=== PATIENT | male | born 1975 | race Caucasian/White ===

== ENCOUNTER 2019-01-14 08:00 | Outpatient (CLI) | payer OTHER ==
[2019-01-14 12:14] LABS: BASOPHILS # (AUTO) 0.1 10^3/uL (0.0-0.1); BASOPHILS % (AUTO) 0.9 %; EOSINOPHILS # (AUTO) 0.4 10^3/uL (0.0-0.7); EOSINOPHILS % (AUTO) 4.7 %; LYMPHOCYTES # (AUTO) 1.6 10^3/uL (1.5-3.5); LYMPHOCYTES % (AUTO) 17.4 %; MEAN CORPUSCULAR HEMOGLOBIN 27.1 pg (27.0-31.0); MEAN CORPUSCULAR HGB CONC 32.1 g/dL (32.0-36.0); MEAN CORPUSCULAR VOLUME 84.4 fL (80.0-94.0); MEAN PLATELET VOLUME 10.8 fL (7.4-11.4); MONOCYTES # (AUTO) 0.8 10^3/uL (0.0-1.0); MONOCYTES % (AUTO) 8.4 %; NEUTROPHILS # (AUTO) 6.4 10^3/uL (1.5-6.6); PLT - PLATELET COUNT 242 10^3/uL (130-450); RED CELL DISTRIBUTION WIDTH 13.3 % (12.0-15.0); WHITE BLOOD COUNT 9.4 x10^3/uL (4.8-10.8)
[2019-01-14 13:01] LABS: HEMOGLOBIN A1C 0.65 g/dL; HEMOGLOBIN A1C % 5.7 % (4.6-6.2)
[2019-01-14 13:28] LABS: ALBUMIN 4.5 g/dL (3.2-5.5); ALBUMIN/GLOBULIN RATIO 1.3 (1.0-2.2); ALKALINE PHOSPHATASE 60 IU/L (42-121); ALT ALANINE AMINOTRANSFERASE 53 IU/L (10-60); AST ASPARTATE AMINOTRANSFERASE 31 IU/L (10-42); BILIRUBIN,TOTAL 0.5 mg/dL (0.2-1.0); BUN - BLOOD UREA NITROGEN 25 mg/dL (6-20); CALCIUM 9.3 mg/dL (8.5-10.3); CARBON DIOXIDE - CO2 23 mmol/L (21-32); CHLORIDE 106 mmol/L (101-111); CHOL/HDL RATIO 3.5 (<5.0); CHOLESTEROL 170 mg/dL; CREATININE 0.8 mg/dL (0.6-1.2); GFR - MDRD 106 (>89); GLUCOSE 113 mg/dL (70-100); HDL CHOLESTEROL 49 mg/dL; LDL CHOLESTEROL,CALCULATED 102 mg/dL; LDL/HDL RATIO 2.1 (<3.6); SODIUM 137 mmol/L (135-145); TOTAL PROTEIN 7.9 g/dL (6.7-8.2); VLDL CHOLESTEROL 19 mg/dL
[2019-01-14 13:45] LABS: CREATININE,URINE 184.1 mg/dL; MICROALBUM/CREATININE RATIO,UR 66.3 ug/mg (<30.0); MICROALBUMIN,URINE 12.2 mg/dL (0-300.0)
== END 2019-01-14 23:59 | disposition home or self-care (01) ==
LOC: LAB.WCP 08:00
PROVIDERS: ATTEND Family Medicine
DX: E88.81 Metabolic syndrome and other insulin resistance (principal); R94.5 Abnormal results of liver function studies; I10 Essential (primary) hypertension; Z12.5 Encounter for screening for malignant neoplasm of prostate
CPT/HCPCS: 36415; 80050; 80061; 82043; 82570; 83036; 83721; 84153

== ENCOUNTER 2019-05-17 10:13 | Emergency (ER) | payer OTHER ==
--- NOTE | 2019-05-17 11:39 | ED Physician Documentation ---
History of Present Illness - Stated complaint Stated Complaint: RT FOOT PX - Chief complaint Chief Complaint: Ext Problem - History obtained from History obtained from: Patient, Family - History of Present Illness Timing: How many days ago (3) - Additonal information Additional information: This is a 44-year-old man with an apparent developmental delay presents with his father complaints that he is having pain in his right ankle. 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 He was getting out of the truck when he first noticed it. He denies any injury. [facility] and he was still complaining of pain and they noted a little swelling so they are here to make sure that is not fractur ed. He did get bit by anything. No fever no nausea or vomiting. He is not diabetic. Review of Systems Constitutional: denies: Fever GI: denies: Nausea, Vomiting Musculoskeletal: reports: Extremity pain, Extremity swelling Neurologic: denies: Numbness Endocrine: reports: Other (He is not diabetic.) PD PAST MEDICAL HISTORY - Allergies Allergies/Adverse Reactions: Allergies Allergy/AdvReac Type Severity Reaction Status Date / Time bee venom protein (honey bee) Allergy Unknown Verified 05/18/19 07:24 PD ED PE NORMAL - Vitals Vital signs reviewed: Yes - General General: Alert and oriented X 3, No acute distress, Well developed/nourished - HEENT HEENT: Atraumatic, PERRL - Derm Derm: No rash - Extremities Extremities: Other (There is some very minimal edema to the lateral aspect of the right ankle. There is no warmth or erythema. He has some tenderness with palpation across the anterior joint line. He has 2+ dorsalis pedis pulse and is able to wiggle his toes.) - Neuro Neuro: No motor deficit, No sensory deficit Results - Vitals Vitals: Oxygen O2 Source Room air - Rads (name of study) r ankle Radiology: EMP read contemporaneously (spur calcaneus) r foot Radiology: EMP read contemporaneously (spur calcaneus; no fracture) PD MEDICAL DECISION MAKING - ED course Complexity details: reviewed results, d/w patient, d/w family ED course: There is no evidence of fracture on the ankle or foot x-ray but I did note the spur on the calcaneus and my initial impression was that the patient had tendinitis anyway. They were offered a boot for support or postop shoe but they have declined this. Ibuprofen for pain ice and elevate. Departure - Departure Disposition: 01 Home, Self Care Clinical Impression: Foot pain, right Condition: Good Instructions: ED Sprain Foot Follow-Up: Blaine Paul MD [Primary Care Provider] - Comments: Take ibuprofen [id number] up to 3 to 4 tablets every 8 hours with food. Ice the foot where it sore. Minimize weightbearing as much as possible. F ollow-up with a primary care provider if his symptoms persist. Discharge Date/Time: 05/17/19 13:42
--- NOTE | 2019-05-17 13:04 | XRAY Report ---
Reason: pain Procedure Date: 05/17/2019 Accession Number: [id number] / [id number] Procedure: XR - Foot 3 View RT CPT Code: Final Report FULL RESULT: EXAM: RIGHT FOOT RADIOGRAPHY EXAM DATE: 05/17/2019 12:37 PM. CLINICAL HISTORY: Right foot pain. COMPARISON: None. TECHNIQUE: 3 views. FINDINGS: Bones: No acute fracture or bony lesion. No bony erosions. Prominent osteophyte arising from the superior talus. Joints: Normal alignment. Mild right first MTP joint degenerative changes. No dislocation. Soft Tissues: No radiopaque foreign bodies. IMPRESSION: 1. No acute osseous abnormalities. RADIA
[2019-05-17 13:42] VITALS: BP 138/101
--- NOTE | 2019-05-18 08:19 | XRAY Report ---
Reason: right ankle injury Procedure Date: 05/17/2019 Accession Number: [id number] / [id number] Procedure: XR - Ankle 3 View RT CPT Code: Final Report FULL RESULT: EXAM: RIGHT ANKLE RADIOGRAPHY EXAM DATE: 05/17/2019 12:04 PM. CLINICAL HISTORY: Right ankle injury. COMPARISON: None. TECHNIQUE: 3 views. FINDINGS: Bones: No fracture or focal bony lesion. Joints: No evidence of dislocation. Soft Tissues: No unexpected soft tissue findings. IMPRESSION: No evidence of fracture or dislocation. RADIA
== END 2019-05-17 13:42 | disposition home or self-care (01) ==
LOC: ED 10:13
DX: M25.571 Pain in right ankle and joints of right foot (principal); M77.31 Calcaneal spur, right foot
CPT/HCPCS: 99283; 99284

== ENCOUNTER 2021-03-19 08:00 | Outpatient (CLI) | payer OTHER ==
[2021-03-19 12:43] LABS: BASOPHILS # (AUTO) 0.1 10^3/uL (0.0-0.1); BASOPHILS % (AUTO) 0.8 %; EOSINOPHILS # (AUTO) 0.4 10^3/uL (0.0-0.7); HCT - HEMATOCRIT 49.5 % (42.0-52.0); HGB - HEMOGLOBIN 16.3 g/dL (14.0-18.0); LYMPHOCYTES % (AUTO) 27.9 %; MEAN CORPUSCULAR HEMOGLOBIN 27.8 pg (27.0-31.0); MEAN CORPUSCULAR HGB CONC 32.9 g/dL (32.0-36.0); MEAN CORPUSCULAR VOLUME 84.5 fL (80.0-94.0); MONOCYTES # (AUTO) 0.6 10^3/uL (0.0-1.0); MONOCYTES % (AUTO) 8.7 %; NEUTROPHILS % (AUTO) 55.5 %; PLT - PLATELET COUNT 164 10^3/uL (130-450); RED BLOOD COUNT 5.86 10^6/uL (4.70-6.10); WHITE BLOOD COUNT 7.3 x10^3/uL (4.8-10.8)
[2021-03-19 12:58] LABS: CREATININE,URINE 241.4 mg/dL; MICROALBUM/CREATININE RATIO,UR 32.3 ug/mg (<30.0); MICROALBUMIN,URINE 7.8 mg/dL (0-300.0)
[2021-03-19 13:01] LABS: ALBUMIN 4.5 g/dL (3.2-5.5); ALBUMIN/GLOBULIN RATIO 1.5 (1.0-2.2); ALKALINE PHOSPHATASE 58 IU/L (42-121); ALT ALANINE AMINOTRANSFERASE 60 IU/L (10-60); AST ASPARTATE AMINOTRANSFERASE 36 IU/L (10-42); BILIRUBIN,TOTAL 1.1 mg/dL (0.2-1.0); BUN - BLOOD UREA NITROGEN 24 mg/dL (6-20); CALCIUM 9.5 mg/dL (8.5-10.3); CARBON DIOXIDE - CO2 28 mmol/L (21-32); CHLORIDE 102 mmol/L (101-111); CHOL/HDL RATIO 3.8 (<5.0); CHOLESTEROL 164 mg/dL; CREATININE 0.9 mg/dL (0.6-1.2); GFR - MDRD 91 (>89); GLUCOSE 111 mg/dL (70-100); HDL CHOLESTEROL 43 mg/dL; LDL CHOLESTEROL,CALCULATED 95 mg/dL; LDL/HDL RATIO 2.2 (<3.6); POTASSIUM 3.9 mmol/L (3.5-5.0); SODIUM 140 mmol/L (135-145); TOTAL PROTEIN 7.5 g/dL (6.7-8.2); TRIGLYCERIDES 132 mg/dL; VLDL CHOLESTEROL 26 mg/dL
[2021-03-19 13:11] LABS: THYROID STIMULATING HORMONE 2.2 uIU/mL (0.34-5.60)
[2021-03-19 13:26] LABS: ESTIMATED AVERAGE GLUCOSE 134 mg/dL (70-100); HEMOGLOBIN A1c% 6.3 % (4.27-6.07)
== END 2021-03-19 23:59 | disposition home or self-care (01) ==
LOC: LAB.WCP 08:00
PROVIDERS: ATTEND Internal Medicine
DX: E88.81 Metabolic syndrome and other insulin resistance (principal)
CPT/HCPCS: 36415; 80053; 80061; 82043; 82570; 83036; 83721; 84443; 85025

== ENCOUNTER 2021-05-08 08:44 | Outpatient (CLI) | payer OTHER ==
--- NOTE | 2021-05-08 11:13 | XRAY Report ---
PROCEDURE: Ankle 3 View RT INDICATIONS: ANKLE/FOOT PAIN TECHNIQUE: 3 views of the ankle were acquired. COMPARISON: 05/17/2019 FINDINGS: Bones: No fractures or dislocations. Ankle mortise is normally aligned. No suspicious bony lesions . The talar dome demonstrates an unremarkable appearance. Soft tissues: No tibiotalar joint effusion. Achilles tendon appears normal. IMPRESSION: No significant plain film abnormality can be seen. In this patient with persistent right ankle pain, please consider a follow-up ankle MRI for further e valuation (assuming that there is no contraindication). Reviewed by: Liu Granados MD on 05/08/2021 10:12 AM [facility] Approved by: Liu Granados MD on 05/08/2021 10:12 AM [facility] Station ID: [id number]
== END 2021-05-08 08:45 | disposition home or self-care (01) ==
LOC: DI.WOS 08:44
PROVIDERS: ATTEND Orthopaedic Surgery
DX: M25.571 Pain in right ankle and joints of right foot (principal)

== ENCOUNTER 2021-09-25 06:00 | Outpatient (CLI) | payer OTHER ==
--- NOTE | 2021-09-25 17:31 | XRAY Report ---
PROCEDURE: Foot 3 View RT INDICATIONS: FOOT PAIN TECHNIQUE: 3 views of the foot were acquired. COMPARISON: None FINDINGS: Bones: No fractures or dislocations. Mild osteoarthritic changes are noted in forefoot joints more p rominent in great toe. No suspicious bony lesions. Soft tissues: No tibiotalar joint effusion. Achilles tendon appears normal. IMPRESSION: Mild forefoot joint osteoarthritis. No fracture or dislocation. Reviewed by: Kody Zacarias MD on 09/25/2021 5:30 PM PDT Approved by: Kody Zacarias MD on 09/25/2021 5:30 PM PDT Station ID: [id number]
--- NOTE | 2021-09-25 17:32 | XRAY Report ---
PROCEDURE: Ankle 3 View RT INDICATIONS: ANKLE PX TECHNIQUE: 3 views of the ankle were acquired. COMPARISON: 05/08/2021 FINDINGS: Bones: Curvilinear calcification adjacent to tip of medial malleolus is again seen suggestive of old avulsion injury. Other fracture or dislocation. Osteoarthritic changes are noted in talonavicular nandini int and subtalar joint. Ankle mortise is normally aligned. No suspicious bony lesions. Soft tissues: No tibiotalar joint effusion. Achilles tendon appears normal. IMPRESSION: Mild hindfoot joint osteoarthritis. Old avulsion injury involving tip of medial malleolu s unchanged from prior study. Ankle mortise is congruent. No other fracture or dislocation. Reviewed by: Kody Zacarias MD on 09/25/2021 5:31 PM PDT Approved by: Kody Zacarias MD on 09/25/2021 5:31 PM PDT Station ID: [id number]
== END 2021-09-25 23:59 | disposition home or self-care (01) ==
LOC: DI.WOS 06:00
PROVIDERS: ATTEND Physician Assistant
DX: M25.871 Other specified joint disorders, right ankle and foot (principal); M19.071 Primary osteoarthritis, right ankle and foot

== ENCOUNTER 2021-11-13 07:09 | Outpatient (CLI) | payer OTHER ==
[2021-11-13 13:31] LABS: ALBUMIN 4.4 g/dL (3.2-5.5); ALBUMIN/GLOBULIN RATIO 1.5 (1.0-2.2); ALKALINE PHOSPHATASE 48 IU/L (42-121); ALT ALANINE AMINOTRANSFERASE 38 IU/L (10-60); AST ASPARTATE AMINOTRANSFERASE 31 IU/L (10-42); BILIRUBIN,TOTAL 0.8 mg/dL (0.2-1.0); BUN - BLOOD UREA NITROGEN 23 mg/dL (6-20); CALCIUM 9.4 mg/dL (8.5-10.3); CARBON DIOXIDE - CO2 28 mmol/L (21-32); CHLORIDE 103 mmol/L (101-111); CHOL/HDL RATIO 3.4 (<5.0); CHOLESTEROL 164 mg/dL; CREATININE 0.8 mg/dL (0.6-1.2); GFR - MDRD 104 (>89); GLUCOSE 100 mg/dL (70-100); HDL CHOLESTEROL 48 mg/dL; LDL CHOLESTEROL,CALCULATED 97 mg/dL; POTASSIUM 3.8 mmol/L (3.5-5.0); SODIUM 138 mmol/L (135-145); TOTAL PROTEIN 7.4 g/dL (6.7-8.2); TRIGLYCERIDES 94 mg/dL; VLDL CHOLESTEROL 19 mg/dL
[2021-11-13 14:50] LABS: ESTIMATED AVERAGE GLUCOSE 114 mg/dL (70-100); HEMOGLOBIN A1c% 5.6 % (4.27-6.07)
== END 2021-11-13 07:10 | disposition home or self-care (01) ==
LOC: LAB.N 07:09
PROVIDERS: ATTEND Internal Medicine
DX: R73.03 Prediabetes (principal)
CPT/HCPCS: 36415; 80053; 80061; 83036; 83721

== ENCOUNTER 2022-05-18 10:10 | Outpatient (CLI) | payer OTHER ==
--- NOTE | 2022-05-18 10:55 | XRAY Report ---
PROCEDURE: Elbow 2 View RT INDICATIONS: RIGHT ARM PX TECHNIQUE: 2 views of the elbow were acquired. COMPARISON: None FINDINGS: Bones: No fractures or dislocations. No suspicious bony lesions. Soft tissues: No elbow joint effusion. No suspicious soft tissue calcifications. IMPRESSION: No visualized acute fracture or dislocation. However, occult injury cannot be excluded. Recommend osorio rt interval imaging follow-up in 7-10 days as clinically indicated for additional evaluation. Reviewed by: Lian Aguilar MD on 05/18/2022 10:[address] [facility] Approved by: Lian Aguilar MD on 05/18/2022 10:[address] [facility] Station ID: [id number]
== END 2022-05-18 10:11 | disposition home or self-care (01) ==
LOC: DI 10:10
PROVIDERS: ATTEND Nurse Practitioner
DX: M79.601 Pain in right arm (principal)

== ENCOUNTER 2022-10-26 09:18 | Outpatient (CLI) | payer OTHER ==
[2022-10-26 19:02] LABS: BASOPHILS # (AUTO) 0.1 10^3/uL (0.0-0.1); BASOPHILS % (AUTO) 0.8 %; EOSINOPHILS # (AUTO) 0.4 10^3/uL (0.0-0.7); EOSINOPHILS % (AUTO) 6.9 %; HCT - HEMATOCRIT 46.9 % (42.0-52.0); HGB - HEMOGLOBIN 15.3 g/dL (14.0-18.0); LYMPHOCYTES # (AUTO) 1.8 10^3/uL (1.5-3.5); MEAN CORPUSCULAR HEMOGLOBIN 27.7 pg (27.0-31.0); MEAN CORPUSCULAR HGB CONC 32.6 g/dL (32.0-36.0); MEAN CORPUSCULAR VOLUME 84.8 fL (80.0-94.0); MEAN PLATELET VOLUME 12.1 fL (7.4-11.4); MONOCYTES # (AUTO) 0.5 10^3/uL (0.0-1.0); MONOCYTES % (AUTO) 8.2 %; NEUTROPHILS # (AUTO) 3.3 10^3/uL (1.5-6.6); NEUTROPHILS % (AUTO) 53.6 %; PLT - PLATELET COUNT 145 10^3/uL (130-450); RED BLOOD COUNT 5.53 10^6/uL (4.70-6.10); RED CELL DISTRIBUTION WIDTH 13.6 % (12.0-15.0); WHITE BLOOD COUNT 6.1 x10^3/uL (4.8-10.8)
[2022-10-26 19:30] LABS: ALBUMIN 4.2 g/dL (3.2-5.5); ALBUMIN/GLOBULIN RATIO 1.4 (1.0-2.2); ALKALINE PHOSPHATASE 46 IU/L (42-121); ALT ALANINE AMINOTRANSFERASE 34 IU/L (10-60); AST ASPARTATE AMINOTRANSFERASE 27 IU/L (10-42); BUN - BLOOD UREA NITROGEN 18 mg/dL (6-20); CALCIUM 9.1 mg/dL (8.5-10.3); CARBON DIOXIDE - CO2 28 mmol/L (21-32); CHLORIDE 103 mmol/L (101-111); CHOL/HDL RATIO 3.7 (<5.0); CHOLESTEROL 172 mg/dL; CREATININE 0.8 mg/dL (0.6-1.2); GFR - MDRD 104 (>89); GLUCOSE 91 mg/dL (70-100); HDL CHOLESTEROL 46 mg/dL; LDL CHOLESTEROL,CALCULATED 110 mg/dL; LDL/HDL RATIO 2.4 (<3.6); POTASSIUM 3.9 mmol/L (3.5-5.0); SODIUM 138 mmol/L (135-145); TOTAL PROTEIN 7.1 g/dL (6.7-8.2); TRIGLYCERIDES 80 mg/dL; VLDL CHOLESTEROL 16 mg/dL
[2022-10-26 19:40] LABS: CREATININE,URINE 63.6 mg/dL; MICROALBUM/CREATININE RATIO,UR 6.3 ug/mg (<30.0); MICROALBUMIN,URINE 0.4 mg/dL (0-300.0)
[2022-10-26 21:55] LABS: ESTIMATED AVERAGE GLUCOSE 105 mg/dL (70-100); HEMOGLOBIN A1c% 5.3 % (4.27-6.07)
== END 2022-10-26 09:19 | disposition home or self-care (01) ==
LOC: LAB.N 09:18
PROVIDERS: ATTEND Internal Medicine
DX: I10 Essential (primary) hypertension (principal); R73.03 Prediabetes
CPT/HCPCS: 36415; 80053; 80061; 82043; 82570; 83036; 83721; 85025

== ENCOUNTER 2023-12-28 15:13 | Observation (INO) | payer OTHER ==
--- NOTE | 2023-12-28 15:57 | ED Physician Documentation ---
PD HPI HEENT - Stated complaint Stated Complaint: SWOLLEN NECK AREA - Chief complaint Chief Complaint: Heent - History obtained from History obtained from: Patient (48-year-old gentleman who says he is otherwise healthy has developed relatively painless neck swelling today. He denies fevers, changes in phonation, or dental pain. This is never happened to him before.) PD PAST MEDICAL HISTORY - Past Medical History Cardiovascular: Hypertension Respiratory: None Neuro: None Endocrine/Autoimmune: None GI: None : None HEENT: None Psych: None Musculoskeletal: None Derm: None - Past Surgical History Past Surgical History: No - Allergies Allergies/Adverse Reactions: Allergies Allergy/AdvReac Type Severity Reaction Status Date / Time bee venom protein (honey bee) Allergy Unknown Verified 12/28/23 15:20 - Social History Does the pt smoke?: Yes Smoking Status: Current every day smoker Does the pt drink ETOH?: No Does the pt have substance abuse?: No - POLST Patient has POLST: No PD ED PE NORMAL - Vitals Vital signs reviewed: Yes - General General: Alert and oriented X 3, No acute distress - HEENT HEENT: Other (He seems to have an odd voice, that said he says his phonation is normal. No obvious culprit tooth. He does have some sublingual edema. He also has soft edema below the mandible to the level of the hyoid. Neck is supple.) - Neuro Neuro: Alert and oriented X 3, Normal speech Eye Opening: Spontaneous Motor: Obeys Commands Verbal: Oriented GCS Score: 15 Results - Vitals Vitals: Vital Signs - 24 hr 12/28/23 12/28/23 12/28/23 15:20 15:56 16:26 Temperature 36.9 C Heart Rate 72 65 63 Respiratory 18 22 16 Rate Blood Pressure 167/87 H 140/83 H 128/75 O2 Saturation 96 94 100 12/28/23 12/28/23 12/28/23 16:56 17:00 17:30 Temperature Heart Rate 58 L 58 L 64 Respiratory 18 Rate Blood Pressure 128/80 128/80 141/78 H O2 Saturation 95 95 94 Oxygen O2 Source Room air - Labs Labs: Laboratory Tests 12/28/23 12/28/23 12/28/23 15:55 15:55 16:03 WBC 10.1 RBC 5.57 Hgb 15.3 Hct 45.4 MCV 81.5 MCH 27.5 MCHC 33.7 RDW 13.2 Plt Count 169 MPV 10.6 Neut # (Auto) 6.8 H Lymph # (Auto) 1.9 [place] # (Auto) 0.9 Eos # (Auto) 0.4 Baso # (Auto) 0.1 Absolute Nucleated RBC 0.00 Nucleated RBC % 0.0 Sodium 140 Potassium 3.5 Chloride 104 Carbon Dioxide 27 Anion Gap 9.0 BUN 23 H Creatinine 1.2 Estimated GFR (MDRD) 65 L Glucose 98 Lactic Acid 0.8 Calcium 9.0 Total Bilirubin 0.6 AST 20 ALT 18 Alkaline Phosphatase 52 Total Protein 6.7 Albumin 4.2 Globulin 2.5 Albumin/Globulin Ratio 1.7 - Rads (name of study) CT soft tissue neck demonstrates stranding in the right neck with thickening of the platysma concerning for cellulitis with enlargement of the right s Relevant Findings:: Final report received (CT soft tissue neck demonstrates stranding in the right neck with thickening of the platysma concerning for cellulitis with enlargement of the right submandibular gland, adenopathy, and tonsillar prominence.), EMP independent interpretation of test PD Medical Decision Making - ED course ED course: 48-year-old gentleman looks to have something like Jf's angina.. He is maintaining his airway at this point so we will obtain CT imaging. Will obtain blood cultures and labs and administer Zosyn and dexamethasone. White count is 10, CBC, CMP otherwise unremarkable with normal lactate. After resolution of the CT I did ask a local OMFS, Dr. Rush to come see him and he is on his way as of 5:55 PM. Patient asked me to call his brother Guillaume. He is available at [phone]. Per pts brother Guillaume he does have dev delay. Dr Rush was able to see the patient and reviewed the imaging and feels that the source of his infection is likely a submandibular gland infection and agrees with admission. Decision to admit made at 1843 but slight delay due to hospitalist shift change at 7 PM. Departure - Departure Disposition: 66 [facility] DC/Xfer Clinical Impression: Cellulitis, neck, Sialoadenitis of submandibular gland Condition: Stable Forms: PCP List
[2023-12-28 16:01] LABS: BASOPHILS # (AUTO) 0.1 10^3/uL (0.0-0.1); BASOPHILS % (AUTO) 0.6 %; EOSINOPHILS # (AUTO) 0.4 10^3/uL (0.0-0.7); HCT - HEMATOCRIT 45.4 % (42.0-52.0); HGB - HEMOGLOBIN 15.3 g/dL (14.0-18.0); LYMPHOCYTES # (AUTO) 1.9 10^3/uL (1.5-3.5); LYMPHOCYTES % (AUTO) 18.6 %; MEAN CORPUSCULAR HEMOGLOBIN 27.5 pg (27.0-31.0); MEAN CORPUSCULAR HGB CONC 33.7 g/dL (32.0-36.0); MEAN CORPUSCULAR VOLUME 81.5 fL (80.0-94.0); MEAN PLATELET VOLUME 10.6 fL (7.4-11.4); MONOCYTES # (AUTO) 0.9 10^3/uL (0.0-1.0); NEUTROPHILS # (AUTO) 6.8 10^3/uL (1.5-6.6); NEUTROPHILS % (AUTO) 67.4 %; PLT - PLATELET COUNT 169 10^3/uL (130-450); RED BLOOD COUNT 5.57 10^6/uL (4.70-6.10); RED CELL DISTRIBUTION WIDTH 13.2 % (12.0-15.0); WHITE BLOOD COUNT 10.1 x10^3/uL (4.8-10.8)
[2023-12-28] MEDS: SODIUM CHLORIDE 0.9% 1,000 ML IV STA (16:02)
[2023-12-28] MEDS: DEXAMETHASONE 10 MG/ML VIAL IVP STA (16:02)
[2023-12-28] MEDS: PIPERACILLIN/TAZOBACTAM 3.375 GM in SODIUM CHLORIDE 0.9% MINIBAG 100 ML IV STA (16:14)
[2023-12-28 16:15] LABS: ALBUMIN 4.2 g/dL (3.2-5.5); ALBUMIN/GLOBULIN RATIO 1.7 (1.0-2.2); BILIRUBIN,TOTAL 0.6 mg/dL (0.2-1.0); CREATININE 1.2 mg/dL (0.6-1.3); POTASSIUM 3.5 mmol/L (3.5-4.5); TOTAL PROTEIN 6.7 g/dL (6.4-8.9)
[2023-12-28] MEDS ORDERED: iohexoL-300 100 ML VIAL ONE (16:50)
--- NOTE | 2023-12-28 17:46 | CT Report ---
PROCEDURE: Soft Tissue Neck W INDICATIONS: neck swell CONTRAST: 100ml omni 300 TECHNIQUE: After the administration of intravenous contrast, 3.0 mm axial sections acquired from the sella to th e aortic arch. Additional oblique axial 3.0 mm sections acquired through the pharynx. 3 mm thick co genet reformats were generated. For radiation dose reduction, the following was used: automated exp osure control, adjustment of mA and/or kV according to patient size. COMPARISON: None. FINDINGS: Image quality: Excellent. Lymph nodes: No enlarged lymph nodes seen throughout the neck. A few prominent lymph nodes on the r ight, likely reactive. Vessels: Visualized vasculature appears patent. Neck spaces: Subcutaneous stranding within the right neck with mild thickening of the platysma. No o rganized fluid collections. Prominent palatine tonsils bilaterally. The oropharynx, nasopharynx, and pharynx demonstrate no mucosal lesions. The vocal cords, false vocal cords, pyriform sinuses, epiglo ttis, vallecula, and tongue base all appear normal. Glands: Mild enlargement of the right submandibular gland compared to the left with edema. The parot id glands appear normal. The thyroid is normal in size and there are no incidental findings. Miscellaneous: Visualized brain and orbits appear normal. Lung apices appear clear. Superficial so ft tissues appear normal. Bones: No suspicious bony lesions. Visualized sinuses and mastoids appear unremarkable. IMPRESSION: Subcutaneous stranding within the right neck with thickening of the platysma. Findings are concerning for cellulitis. Mild enlargement of the right submandibular gland with associated edema. This may be reactive from adjacent infection versus infection involving the submandibular gland. Prominent right cervical lymph nodes, likely reactive. Prominence of the bilateral palatine tonsils, may be infectious in etiology. Recommend clinical corre lation and direct visualization as indicated. Reviewed by: Jeferson Hall MD on 12/28/2023 5:44 PM PDT Approved by: Jeferson Hall MD on 12/28/2023 5:44 PM PDT Station ID: [id number]
[2023-12-28] MEDS: iohexoL-300 100 ML VIAL IVP ONE (18:21)
[2023-12-28] MEDS ORDERED: VANCOMYCIN 1 GM VIAL ONE (18:33)
[2023-12-28] MEDS: VANCOMYCIN INJ 2 GM in SODIUM CHLORIDE 0.9% 500 ML IV STA (18:51)
--- NOTE | 2023-12-28 18:58 | CONSULTATION NOTE ---
Referring Provider Name of Referring Provider:: Kameron Scruggs Consult Date: 12/28/23 Chief Complaint - Chief Complaint Chief Complaint: Neck Pain History of Present Illness - Admitted From Admitted From:: ER - History Obtained From Exam Limitations: The patient had mild difficulty answering questions about his history - History of Present Illness HPI Comment/Other: Pain in the right neck and swelling in the throat began this am. Denies fever, night sweats, N/V. Presented to ER today. CT soft tissue neck: cellulitis of the right cervical skin with edema of the R submandibular salivary gland. History - Past Medical History Cardiovascular: reports: Hypertension Respiratory: reports: None Neuro: reports: None Endocrine/Autoimmune: reports: None GI: reports: None : reports: None HEENT: reports: None Psych: reports: None Musculoskeletal: reports: None Derm: reports: None MRSA Hx?: No - POLST Patient has POLST: No Meds/Allgy - Allergies Allergies/Adverse Reactions: Allergies Allergy/AdvReac Type Severity Reaction Status Date / Time bee venom protein (honey bee) Allergy Unknown Verified 12/28/23 15:20 Review of Systems - Constitutional Constitutional: reports: Other (A 14 point review of systems was completed [place] negative except as noted above in HPI) Exam - Vital Signs Reviewed Vital Signs: Yes Vital Signs: Vital Signs x48h Temp Pulse Resp BP Pulse Ox 12/28/23 17:30 64 141/78 H 94 12/28/23 17:00 58 L 128/80 95 12/28/23 16:56 58 L 18 128/80 95 12/28/23 16:26 63 16 128/75 100 12/28/23 15:56 65 22 140/83 H 94 12/28/23 15:20 36.9 C 72 18 167/87 H 96 - Physical Exam General Appearance: positive: No acute distress, Alert Eyes Bilateral: positive: PERRL, EOMI ENT: positive: Other ( LUZ WNL. Occlusion stable and repeatable. Dentition in good repair. Floor the mouth soft, nontender, nonelevated. Right Island's duct red and edematous. No drainage. No saliva can be milked from this site. No palpable stone. Uvula midline. No lateral pharyngeal swelling.) Neck: positive: Other ( Posterior pharyngeal wall easily observable. Some redness of the right submandibular area. No tenderness. Some induration of the right submandibular area. Most notable is the tenderness and swelling of the right submillimeter salivary gland. It can be palpated intraorally and extraorally.) Respiratory: positive: No respiratory distress Cardiovascular: positive: Regular rate & rhythm Peripheral Pulses: positive: 2+ Abdomen: positive: Non-tender Skin: positive: Other Extremities: positive: Non-tender, Nml appearance Conclusion and Plan - Lab Results Laboratory Results 12/28/23 16:03: Lactic Acid 0.8 12/28/23 15:55: Sodium 140, Potassium 3.5, Chloride 104, Carbon Dioxide 27, Anion Gap 9.0, BUN 23 H, Creatinine 1.2, Estimated GFR (MDRD) 65 L, Glucose 98, Calcium 9.0, Total Bilirubin 0.6, AST 20, ALT 18, Alkaline Phosphatase 52, Total Protein 6.7, Albumin 4.2, Globulin 2.5, Albumin/Globulin Ratio 1.7 12/28/23 15:55: WBC 10.1, RBC 5.57, Hgb 15.3, Hct 45.4, MCV 81.5, MCH 27.5, MCHC 33.7, RDW 13.2, Plt Count 169, MPV 10.6, Neut # (Auto) 6.8 H, Lymph # (Auto) 1.9, [place] # (Auto) 0.9, Eos # (Auto) 0.4, Baso # (Auto) 0.1, Absolute Nucleated RBC 0.00, Nucleated RBC % 0.0 - Diagnostic Imaging Results Diagnostic Imaging Results Comments: Cellulitis of the right cervical skin especially. The cellulitis is in a supraplatysmal plane and there is also edema in a subplatysmal plane. There is also edema of the right significant Marvin salivary gland, moderate. There is no associated abscess. There is no observable calcified stone within the right Island's duct. There is mild narrowing of the airway although this may be chronic or acute. There is no obvious deviation of the airway and no mass effect on the airway. - Diagnosis Diagnosis: Right submandibular salivary gland sialoadenitis with overlying cellulitis of the cervical skin - Consultation Note Consultation Note: 48-year-old male with right submandibular salivary gland sialoadenitis with overlying cellulitis of the cervical skin. Plan: We anticipate nonoperative management of this patient. His cellulitis should resolve nonsurgically. Right now there is no immediate threat of airway compromise. He is phonating normally. He can swallow without difficulty. He has only mild pain when he tries to swallow.His CT scan findings are relatively mild. Recommend admitting to inpatient because of his edema in the setting of his developmental delay. It may be difficult for him to report his symptoms. This may be masking more severe disease than is clinically evident.Because of this we recommend taking a more aggressive approach to his medical management. Medical management for submandibular salivary gland sialoadenitis should include: 1. Hydration. This can be p.o. and intravenous. 2. Intravenous antibiotics. Submandibular sialoadenitis is usually caused by stasis of salivary flow associated with proteinaceous blockage of the right submandibular salivary gland duct, Island's duct. It is often polymicrobial. Staphylococcus aureus is the most common isolate. Other isolates include other common oral allie. Recommend Unasyn 3 g IV every 6 hours followed by 7 days of Augmentin 875 mg tab p.o. twice daily upon discharge 3. Intravenous steroids. Recommend dexamethasone 8 mg IV every 8 hours while in house. Discontinue steroids upon discharge. 4. Activities that encourage saliva production. Chew gum. Suck on sour candies. 5. Encouraged the patient to manually massage the most swollen and painful area of the right neck, this is the prominence of the swelling of the submandibular gland and this will also encourage drainage. It is anticipated that this patient will improve so quickly on steroids and IV antibiotics that he will be ready for discharge by tomorrow morning. I will see him again in the morning to reassess the edema of his right submandibular salivary gland. He will need to follow-up with me in my office. Office phone number is [phone]. If he has recurring sialoadenitis of the right submandibular salivary gland he will need to have the gland removed. Thank you for including me in the care of this patient. Please feel free to contact me with any additional questions. Cell phone: [phone] Aston Rush DDS linen tech
[2023-12-28] MEDS ORDERED: ACETAMINOPHEN 325 MG TABLET PO PRN (20:16)
[2023-12-28] MEDS ORDERED: ONDANSETRON ODT 4 MG TABLET TL PRN (20:16)
[2023-12-28] MEDS ORDERED: oxyCODONE 5 MG TABLET PO PRN ×2 (20:16)
[2023-12-28] MEDS ORDERED: MELATONIN 3 MG TABLET PO PRN (20:17)
[2023-12-28 20:45] LABS: ESTIMATED AVERAGE GLUCOSE 100 mg/dL (70-100); HEMOGLOBIN A1c% 5.1 % (4.27-6.07)
[2023-12-28 20:53] LABS: THYROID STIMULATING HORMONE 1.88 uIU/mL (0.34-5.60)
[2023-12-28 20:55] LABS: CHOL/HDL RATIO 3.4 (<5.0); CHOLESTEROL 158 mg/dL; HDL CHOLESTEROL 47 mg/dL; LDL CHOLESTEROL,CALCULATED 81 mg/dL; LDL/HDL RATIO 1.7 (<3.6); TRIGLYCERIDES 149 mg/dL; VLDL CHOLESTEROL 30 mg/dL
[2023-12-28] MEDS ORDERED: DEXAMETHASONE 10 MG/ML VIAL IVP SCH (21:00)
[2023-12-28] MEDS: FAMOTIDINE 20 MG/2 ML VIAL IVP SCH (21:37)
[2023-12-28] MEDS: SODIUM CHLORIDE FLUSH 0.9% 10 ML SYRINGE IVP PRN (21:37)
[2023-12-28] MEDS: AMPICILLIN/SULBACTAM 3 GM in SODIUM CHLORIDE 0.9% MINIBAG 100 ML IV SCH (21:53)
[2023-12-28] MEDS: LACTATED RINGERS 1,000 ML IV SCH (22:33)
[2023-12-29] MEDS: DEXAMETHASONE 10 MG/ML VIAL IVP SCH (00:42)
[2023-12-29] MEDS: SODIUM CHLORIDE FLUSH 0.9% 10 ML SYRINGE IVP SCH (00:42)
--- NOTE | 2023-12-29 03:37 | HISTORY & PHYSICAL EXAMINATION ---
Chief Complaint - Chief Complaint Chief Complaint: neck / face swelling History of Present Illness - History of Present Illness HPI Comment/Other: pt with R side neck and face swelling that developed within last 24 hours. no sob and denies any recent dental interventions. no fevers, chills, chest pain. he has some pain with swallowing. denies any wounds or injuries to face or neck. History - Past Medical History Cardiovascular: reports: Hypertension Respiratory: reports: None Neuro: reports: None Endocrine/Autoimmune: reports: None GI: reports: None : reports: None HEENT: reports: None Psych: reports: None Musculoskeletal: reports: None Derm: reports: None MRSA Hx?: No - POLST Patient has POLST: No Meds/Allgy - Allergies Allergies/Adverse Reactions: Allergies Allergy/AdvReac Type Severity Reaction Status Date / Time bee venom protein (honey bee) Allergy Unknown Verified 12/28/23 15:20 Review of Systems - Other Findings Other Findings: 14 pt review done with positives per hpi; all others reviewed as negative Exam - Vital Signs Vital Signs: Vital Signs x48h Temp Pulse Pulse Resp BP BP Pulse Ox 12/28/23 23:54 36.4 C L 71 20 127/75 93 12/28/23 21:00 36.6 C 68 20 147/97 H 95 12/28/23 20:55 72 16 127/80 93 - Physical Exam Comments/Other: gen - aaox3, nad heent - R neck/face swelling with tenderness noted along jaw line. no open wounds noted. some erythema. heart - per ed charting lungs - no resp distress noted abd - soft, nt Conclusion/Plan - Lab Results Fish Bones: 12/28/23 15:55 12/28/23 15:55 - Other Other Results/Comments: pt with - - face/neck cellulitis concerning for nilo's angina but maintaining airway ct findings corroborate exam --> neck and subcutaneous edema and swelling d/t cellulitis omfs recommendations appreciated --> unasyn + decadron sialoadenitis - elevated bp with h/o htn exacerbated in setting of above monitor for now; unclear if pt is taking meds
[2023-12-29] MEDS ORDERED: SODIUM CHLORIDE 0.9% MINIBAG 100 ML IV ONE (03:48)
[2023-12-29] MEDS: AMPICILLIN/SULBACTAM 3 GM in SODIUM CHLORIDE 0.9% MINIBAG 100 ML IV SCH (04:14)
[2023-12-29 05:19] LABS: BASOPHILS % (AUTO) 0.1 %; LYMPHOCYTES # (AUTO) 0.7 10^3/uL (1.5-3.5); LYMPHOCYTES % (AUTO) 4.9 %; MEAN CORPUSCULAR HEMOGLOBIN 27.5 pg (27.0-31.0); MEAN CORPUSCULAR HGB CONC 33.3 g/dL (32.0-36.0); MEAN CORPUSCULAR VOLUME 82.6 fL (80.0-94.0); MEAN PLATELET VOLUME 10.7 fL (7.4-11.4); MONOCYTES # (AUTO) 0.2 10^3/uL (0.0-1.0); MONOCYTES % (AUTO) 1.1 %; NEUTROPHILS # (AUTO) 13.8 10^3/uL (1.5-6.6); NEUTROPHILS % (AUTO) 93.4 %; PLT - PLATELET COUNT 167 10^3/uL (130-450); RED BLOOD COUNT 5.45 10^6/uL (4.70-6.10); RED CELL DISTRIBUTION WIDTH 13.2 % (12.0-15.0); WHITE BLOOD COUNT 14.8 x10^3/uL (4.8-10.8)
[2023-12-29 05:38] LABS: ALBUMIN 3.8 g/dL (3.2-5.5); ALBUMIN/GLOBULIN RATIO 1.6 (1.0-2.2); BILIRUBIN,TOTAL 0.8 mg/dL (0.2-1.0); CALCIUM 8.7 mg/dL (8.5-10.3); CREATININE 0.8 mg/dL (0.6-1.3); MAGNESIUM 1.5 mg/dL (1.7-2.3); POTASSIUM 3.5 mmol/L (3.5-4.5); TOTAL PROTEIN 6.2 g/dL (6.4-8.9)
--- NOTE | 2023-12-29 10:02 | PROVIDER PROGRESS NOTE ---
Subjective - General Admit Date: 12/28/23 - Review of Systems General: positive: Other (Ate breakfast without difficulty swallowing or pain. Accompanied by his brother today. Reports that the pain and swelling are improved.) Objective - Patient Data Vital Signs: Vital Signs x48h Temp Pulse Resp BP Pulse Ox 12/29/23 09:00 36.7 C 63 20 126/85 H 93 12/29/23 04:25 36.4 C L 67 20 138/83 H 94 Weight: Weight 12/27/23 12/28/23 12/29/23 23:59 23:59 23:59 Weight (kg) 92 kg Intake & Output: Intake and Output Totals x24h 12/27/23 12/28/23 12/29/23 23:59 23:59 23:59 Intake Total 1700 1398.333 Balance 1700 1398.333 - Lab Results Lab Results: 12/29/23 05:02 12/29/23 05:02 Other Lab Results: Lab Results x24hrs 12/29/23 12/29/23 12/28/23 Range/Units 05:02 05:02 16:03 WBC 14.8 H (4.8-10.8) x10^3/uL RBC 5.45 (4.70-6.10) 10^6/uL Hgb 15.0 (14.0-18.0) g/dL Hct 45.0 (42.0-52.0) % MCV 82.6 (80.0-94.0) fL MCH 27.5 (27.0-31.0) pg MCHC 33.3 (32.0-36.0) g/dL RDW 13.2 (12.0-15.0) % Plt Count 167 (130-450) 10^3/uL MPV 10.7 (7.4-11.4) fL Neut # (Auto) 13.8 H (1.5-6.6) 10^3/uL Lymph # (Auto) 0.7 L (1.5-3.5) 10^3/uL Barnes # (Auto) 0.2 (0.0-1.0) 10^3/uL Eos # (Auto) 0.0 (0.0-0.7) 10^3/uL Baso # (Auto) 0.0 (0.0-0.1) 10^3/uL Absolute Nucleated RBC 0.00 x10^3/uL Nucleated RBC % 0.0 /100WBC Sodium 138 (135-145) mmol/L Potassium 3.5 (3.5-4.5) mmol/L Chloride 109 (101-111) mmol/L Carbon Dioxide 22 (21-32) mmol/L Anion Gap 7.0 (6-13) BUN 24 H (6-20) mg/dL Creatinine 0.8 (0.6-1.3) mg/dL Estimated GFR (MDRD) 103 (>89) Glucose 144 H (74-104) mg/dL Estimat Average Glucose (70-100) mg/dL Hemoglobin A1c % (4.27-6.07) % Lactic Acid 0.8 (0.5-2.2) mmol/L Calcium 8.7 (8.5-10.3) mg/dL Magnesium 1.5 L (1.7-2.3) mg/dL Total Bilirubin 0.8 (0.2-1.0) mg/dL AST 15 (10-42) IU/L ALT 14 (10-60) IU/L Alkaline Phosphatase 42 (42-121) IU/L Total Protein 6.2 L (6.4-8.9) g/dL Albumin 3.8 (3.2-5.5) g/dL Globulin 2.4 (2.1-4.2) g/dL Albumin/Globulin Ratio 1.6 (1.0-2.2) Triglycerides mg/dL Cholesterol ( - 200) mg/dL LDL Cholesterol, Calc ( - 129) mg/dL VLDL Cholesterol mg/dL HDL Cholesterol (60 - ) mg/dL LDL/HDL Ratio (<3.6) Cholesterol/HDL Ratio (<5.0) TSH (0.34-5.60) uIU/mL 12/28/23 12/28/23 12/28/23 Range/Units 15:55 15:55 15:55 WBC (4.8-10.8) x10^3/uL RBC (4.70-6.10) 10^6/uL Hgb (14.0-18.0) g/dL Hct (42.0-52.0) % MCV (80.0-94.0) fL MCH (27.0-31.0) pg MCHC (32.0-36.0) g/dL RDW (12.0-15.0) % Plt Count (130-450) 10^3/uL MPV (7.4-11.4) fL Neut # (Auto) (1.5-6.6) 10^3/uL Lymph # (Auto) (1.5-3.5) 10^3/uL [place] # (Auto) (0.0-1.0) 10^3/uL Eos # (Auto) (0.0-0.7) 10^3/uL Baso # (Auto) (0.0-0.1) 10^3/uL Absolute Nucleated RBC x10^3/uL Nucleated RBC % /100WBC Sodium 140 (135-145) mmol/L Potassium 3.5 (3.5-4.5) mmol/L Chloride 104 (101-111) mmol/L Carbon Dioxide 27 (21-32) mmol/L Anion Gap 9.0 (6-13) BUN 23 H (6-20) mg/dL Creatinine 1.2 (0.6-1.3) mg/dL Estimated GFR (MDRD) 65 L (>89) Glucose 98 (74-104) mg/dL Estimat Average Glucose 100 (70-100) mg/dL Hemoglobin A1c % 5.1 (4.27-6.07) % Lactic Acid (0.5-2.2) mmol/L Calcium 9.0 (8.5-10.3) mg/dL Magnesium (1.7-2.3) mg/dL Total Bilirubin 0.6 (0.2-1.0) mg/dL AST 20 (10-42) IU/L ALT 18 (10-60) IU/L Alkaline Phosphatase 52 (42-121) IU/L Total Protein 6.7 (6.4-8.9) g/dL Albumin 4.2 (3.2-5.5) g/dL Globulin 2.5 (2.1-4.2) g/dL Albumin/Globulin Ratio 1.7 (1.0-2.2) Triglycerides 149 mg/dL Cholesterol 158 ( - 200) mg/dL LDL Cholesterol, Calc 81 ( - 129) mg/dL VLDL Cholesterol 30 mg/dL HDL Cholesterol 47 L (60 - ) mg/dL LDL/HDL Ratio 1.7 (<3.6) Cholesterol/HDL Ratio 3.4 (<5.0) TSH 1.88 (0.34-5.60) uIU/mL 12/28/23 Range/Units 15:55 WBC 10.1 (4.8-10.8) x10^3/uL RBC 5.57 (4.70-6.10) 10^6/uL Hgb 15.3 (14.0-18.0) g/dL Hct 45.4 (42.0-52.0) % MCV 81.5 (80.0-94.0) fL MCH 27.5 (27.0-31.0) pg MCHC 33.7 (32.0-36.0) g/dL RDW 13.2 (12.0-15.0) % Plt Count 169 (130-450) 10^3/uL MPV 10.6 (7.4-11.4) fL Neut # (Auto) 6.8 H (1.5-6.6) 10^3/uL Lymph # (Auto) 1.9 (1.5-3.5) 10^3/uL [place] # (Auto) 0.9 (0.0-1.0) 10^3/uL Eos # (Auto) 0.4 (0.0-0.7) 10^3/uL Baso # (Auto) 0.1 (0.0-0.1) 10^3/uL Absolute Nucleated RBC 0.00 x10^3/uL Nucleated RBC % 0.0 /100WBC Sodium (135-145) mmol/L Potassium (3.5-4.5) mmol/L Chloride (101-111) mmol/L Carbon Dioxide (21-32) mmol/L Anion Gap (6-13) BUN (6-20) mg/dL Creatinine (0.6-1.3) mg/dL Estimated GFR (MDRD) (>89) Glucose (74-104) mg/dL Estimat Average Glucose (70-100) mg/dL Hemoglobin A1c % (4.27-6.07) % Lactic Acid (0.5-2.2) mmol/L Calcium (8.5-10.3) mg/dL Magnesium (1.7-2.3) mg/dL Total Bilirubin (0.2-1.0) mg/dL AST (10-42) IU/L ALT (10-60) IU/L Alkaline Phosphatase (42-121) IU/L Total Protein (6.4-8.9) g/dL Albumin (3.2-5.5) g/dL Globulin (2.1-4.2) g/dL Albumin/Globulin Ratio (1.0-2.2) Triglycerides mg/dL Cholesterol ( - 200) mg/dL LDL Cholesterol, Calc ( - 129) mg/dL VLDL Cholesterol mg/dL HDL Cholesterol (60 - ) mg/dL LDL/HDL Ratio (<3.6) Cholesterol/HDL Ratio (<5.0) TSH (0.34-5.60) uIU/mL - Current Medications Current Medications: Current Medications Generic Name Dose Route Start Last Admin Trade Name Freq PRN Reason Stop Dose Admin Dexamethasone Sodium Phosphate 8 mg 12/29/23 00:00 12/29/23 08:21 Dexamethasone 10 Mg/Ml Vial IVP 8 mg Q8H PATRICA Administration Famotidine 20 mg 12/28/23 21:00 12/28/23 21:37 Famotidine 20 Mg/2 Ml Vial IVP 20 mg BID PATRICA Administration Lactated Ringer's 1,000 mls @ 125 mls/hr 12/28/23 21:00 12/29/23 06:13 Lr IV 125 mls/hr .Q8H PATRICA Administration Ampicillin Sodium/Sulbactam 100 mls @ 200 mls/hr 12/29/23 04:06 12/29/23 04:44 Sodium 3 gm/ Sodium Chloride IV Infused Q6H PATRICA Infusion Sodium Chloride 10 ml 12/29/23 01:00 12/29/23 00:42 Sodium Chloride Flush 0.9% 10 Ml Syringe IVP 10 ml 0100,0900,1700 PATRICA Administration Sodium Chloride 10 ml 12/28/23 20:16 12/28/23 21:37 Sodium Chloride Flush 0.9% 10 Ml Syringe IVP 10 ml PRN PRN Administration NEEDED PER PROVIDER ORDERS - Physical Exam General Appearance: positive: No acute distress, Alert ENT: positive: Other (LUZ wnl. Today there is clear drainage from the right Telfair's duct, which is still mildly erythematous. FOM s,nt,ne.) Neck: positive: Other (Mild decrease in palpable swelling of the R submandibular salivary gland. No erythema of the neck/skin overlying the gland. No induration of the neck.) Impression/Plan - Problem List Problem List: R submandibular cellulitis 2/2 R submandibular salivary gland sialoadenitis - moderate improvement today in clinical exam and reported symptoms. - taking PO w/out difficulty. No clinical signs of airway distress - afebrile overnight - WBC 10 --> 14 today in the setting of IV decadron. How much of this leukocytosis can be attributed to the decadron vs the infection is difficult to quantify. - clear salivary flow this morning from the R Telfair's duct. Yesterday there was no drainage. This is an encouraging finding. Summary: Overall this is a moderate sialoadenitis and his clinical course is improving. From an OMFS standpoint he can be discharged in the care of his brother. I will see him in my office tomorrow and for serial exams to make sure he continues to improve. Discharge with Augmentin 875 BID x 7 days Encourage extra water intake chew sour gum throughout the day Appreciate IM assistance Aston Rush DDS resident medical officer Office: [phone]
[2023-12-29] MEDS: LACTOBACILLUS RHAMNOSUS GG CAPSULE PO SCH (10:39)
--- NOTE | 2023-12-29 10:45 | Discharge Plan ---
Discharge Plan Problem Reviewed?: Yes Disposition: Home, Self Care Condition: Stable Prescriptions: Amox/Clav 875/125 [Augmentin 875/125 Tab] 1 tablet PO Q12H 10 Days #20 tablet Diet: Regular Activity Restrictions: No Restrictions Shower Restrictions: No Driving Restrictions: No Instruction Topics: ED Submandibular Gland Infec Health Concerns: You presented to the emergency room because you have broken up in the morning with tightness and swelling in your throat. It was getting harder to swallow. In the emergency room you were seen by the emergency room doctor and an oral maxillofacial surgeon. The conclusion was that of a infected saliva gland. It was the saliva gland just along her jawline along the right side. That infection had then caused infection of the skin that was spreading down your neck into the back of your neck. This can be very dangerous and cut off your ability to breathe. CAT scan of the neck showed you to have extensive edema or swelling of the infected area. You are brought in overnight to see if you would get better with antibiotics and you did. Your swelling is much better. And the redness of skin infection had completely gone away from your right neck. You still have swelling and lymph node enlargement on that right side but you are swallowing normally, breathing normally. Plan of Treatment: 1. Please see your primary care provider, Dr. Dobson, in the next 2 weeks. 2. Please see the oral maxillofacial surgeon, Dr. Cadet, tomorrow. If you could call his office at around 8 in the morning and find out what time to show up. His number is [phone]. Address is [address] [place] [address], [id number], [place]. 3. You will need to go home on Augmentin which is an antibiotic. Take 1 tablet twice a day and take all of the antibiotics. 4. Because Augmentin can cause diarrhea, please take an [id number] probiotic twice a day while you are on the Augmentin. Care Goals: At this time it is to get over your infection of saliva gland Assessment: patient is alert, oriented to person, place, time and situation. Brother is in the room with him. Although the patient has some learning disabilities from childhood, he is independent and can pay his own bills, live alone, drive a car. No Smoking: If you smoke, Please STOP! Call for help. Follow-up with: Guillaume Dobson MD [Primary Care Provider] - JOAO CADET [Physician No Access] -
--- NOTE | 2023-12-29 10:48 | PHARMACY PROGRESS NOTE ---
- Best Possible Medication History Admit Date and Time: 12/28/232015 Processed by: Pharmacy Secondary Source(s): Pharmacy records, Insurance records As the person ultimately responsible for medication therapy, providers are able to order a medication from an existing home medication list in [facility] via the "Reconcile Routine" prior to Confirmation of that medication by product support consultant. Such practice is discouraged except when the physician, in their clinical judgment, deems that a medical need exists for a medication without regard to previous use.
--- NOTE | 2023-12-29 11:06 | PROVIDER PROGRESS NOTE ---
Subjective - Prog Note Date Prog Note Date: 12/29/23 Prog Note Time: 11:02 - Subjective Pt reports feeling: Improved Subjective: Discharge Note The patient was admitted last night for an infected submandibular saliva gland on the right side. He presented with dysphagia, painful swollen right neck. Oral maxillofacial surgery consulted on him and felt that he should be placed in observation because of the extensive cellulitis that radiated backward to the back of the C-spine skin area. There was no airway compromise. He has received IV antibiotics overnight and this morning the redness has Resolved. The swelling has gone down. He still has a little bit of dysphagia but again denies any airway compromise, and there is no stridor on exam. I have discussed the case with oral maxillofacial surgery, and we both agreed that the patient has improved. I think the patient can be discharged to home on oral antibiotics. Surgery would like to see the patient in their office tomorrow morning. I have given the patient the phone number for the surgeons office. To call at 8 in the morning and find out what time he should be worked in. I have sent a prescription to [facility] at 875 mg p.o. twice daily of Augmentin to take for the next 10 days. The patient does have a learning disability/developmental delay. Lives with an elderly demented mother. Brother is in the room at the time of discharge. I asked the brother if home was a safe living situation. He states that even though his brother has a learning disability, he is still completely independent and is able to make his own decisions. 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 Current Medications - Current Medications Current Medications: Active Medications during admission, now discontinued Acetaminophen (Acetaminophen 325 Mg Tablet) 650 mg PO Q6H PRN PRN Reason: Pain 1 to 4, or Fever Dexamethasone Sodium Phosphate (Dexamethasone 10 Mg/Ml Vial) 8 mg IVP Q8H [facility] Last Admin: 12/29/23 08:21 Dose: 8 mg Famotidine (Famotidine 20 Mg/2 Ml Vial) 20 mg IVP BID [facility] Last Admin: 12/29/23 10:39 Dose: 20 mg Lactated Ringer's (Lr) 1,000 mls @ 125 mls/hr IV .Q8H [facility] Last Admin: 12/29/23 06:13 Dose: 125 mls/hr Ampicillin Sodium/Sulbactam (Sodium 3 gm/ Sodium Chloride) 100 mls @ 200 mls/hr IV Q6H [facility] Last Admin: 12/29/23 10:59 Dose: 200 mls/hr Lactobacillus Rhamnosus (Lactobacillus Rhamnosus Gg Capsule) 1 cap PO DAILY [facility] Last Admin: 12/29/23 10:39 Dose: 1 cap Melatonin (Melatonin 3 Mg Tablet) 3 mg PO QPM PRN PRN Reason: sleep Ondansetron HCl (Ondansetron Odt 4 Mg Tablet) 4 mg TL Q6HR PRN PRN Reason: Nausea / Vomiting Oxycodone HCl (Oxycodone 5 Mg Tablet) 5 mg PO Q4HR PRN PRN Reason: Pain 5 to 7 Oxycodone HCl (Oxycodone 5 Mg Tablet) 10 mg PO Q4HR PRN PRN Reason: Pain 8 to 10 Sodium Chloride (Sodium Chloride Flush 0.9% 10 Ml Syringe) 10 ml IVP 0100,0900,1700 [facility] Last Admin: 12/29/23 10:39 Dose: 10 ml Sodium Chloride (Sodium Chloride Flush 0.9% 10 Ml Syringe) 10 ml IVP PRN PRN PRN Reason: NEEDED PER PROVIDER ORDERS Last Admin: 12/28/23 21:37 Dose: 10 ml Home Medications to be resumed Lisinopril [Zestril] 20 mg PO DAILY 12/29/23 Triamterene/Hydrochlorothiazid [Triamterene-Hctz 37.5-25 mg Cp] 1 each PO DAILY 12/29/23 New Medication Augmentin 875/125 mg p.o. twice daily #20 [id number] Florastor 250 mg p.o. twice daily Objective - Vital Signs/Intake & Output Reviewed Vital Signs: Yes Vital Signs: Vital Signs x48h Temp Pulse Resp BP Pulse Ox 12/29/23 09:00 36.7 C 63 20 126/85 H 93 12/29/23 04:25 36.4 C L 67 20 138/83 H 94 Intake & Output: Intake & Output 12/26/23 12/27/23 12/28/23 12/29/23 23:59 23:59 23:59 23:59 Intake Total 1700 1398.333 Balance 1700 1398.333 - Objective General Appearance: positive: No acute distress, Alert Eyes Bilateral: positive: PERRL, EOMI ENT: positive: No signs of dehydration Neck: positive: No JVD, Trachea midline, Swelling/bruising (external exam with right submandibular gland and lymphadenopathy present on palpation. Intraoral gland visible and reddened and slightly hardened but drainage is clear. The redness that started in his front of his neck and went to the back of his neck has resolved.). negative: Stiff neck Respiratory: positive: No respiratory distress. negative: Wheezes, Rales, Rhonchi Cardiovascular: positive: Regular rate & rhythm Abdomen: positive: Non-tender, No organomegaly, Nml bowel sounds, No distention Extremities: positive: Non-tender, Full ROM Neurologic/Psychiatric: positive: Oriented x3, CN's nml (2-12), Motor nml - Lab Results Fish Bones: 12/29/23 05:02 12/29/23 05:02 Other Labs: Lab Results x24hrs 12/29/23 12/29/23 12/28/23 Range/Units 05:02 05:02 16:03 WBC 14.8 H (4.8-10.8) x10^3/uL RBC 5.45 (4.70-6.10) 10^6/uL Hgb 15.0 (14.0-18.0) g/dL Hct 45.0 (42.0-52.0) % MCV 82.6 (80.0-94.0) fL MCH 27.5 (27.0-31.0) pg MCHC 33.3 (32.0-36.0) g/dL RDW 13.2 (12.0-15.0) % Plt Count 167 (130-450) 10^3/uL MPV 10.7 (7.4-11.4) fL Neut # (Auto) 13.8 H (1.5-6.6) 10^3/uL Lymph # (Auto) 0.7 L (1.5-3.5) 10^3/uL [place] # (Auto) 0.2 (0.0-1.0) 10^3/uL Eos # (Auto) 0.0 (0.0-0.7) 10^3/uL Baso # (Auto) 0.0 (0.0-0.1) 10^3/uL Absolute Nucleated RBC 0.00 x10^3/uL Nucleated RBC % 0.0 /100WBC Sodium 138 (135-145) mmol/L Potassium 3.5 (3.5-4.5) mmol/L Chloride 109 (101-111) mmol/L Carbon Dioxide 22 (21-32) mmol/L Anion Gap 7.0 (6-13) BUN 24 H (6-20) mg/dL Creatinine 0.8 (0.6-1.3) mg/dL Estimated GFR (MDRD) 103 (>89) Glucose 144 H (74-104) mg/dL Estimat Average Glucose (70-100) mg/dL Hemoglobin A1c % (4.27-6.07) % Lactic Acid 0.8 (0.5-2.2) mmol/L Calcium 8.7 (8.5-10.3) mg/dL Magnesium 1.5 L (1.7-2.3) mg/dL Total Bilirubin 0.8 (0.2-1.0) mg/dL AST 15 (10-42) IU/L ALT 14 (10-60) IU/L Alkaline Phosphatase 42 (42-121) IU/L Total Protein 6.2 L (6.4-8.9) g/dL Albumin 3.8 (3.2-5.5) g/dL Globulin 2.4 (2.1-4.2) g/dL Albumin/Globulin Ratio 1.6 (1.0-2.2) Triglycerides mg/dL Cholesterol ( - 200) mg/dL LDL Cholesterol, Calc ( - 129) mg/dL VLDL Cholesterol mg/dL HDL Cholesterol (60 - ) mg/dL LDL/HDL Ratio (<3.6) Cholesterol/HDL Ratio (<5.0) TSH (0.34-5.60) uIU/mL 12/28/23 12/28/23 12/28/23 Range/Units 15:55 15:55 15:55 WBC (4.8-10.8) x10^3/uL RBC (4.70-6.10) 10^6/uL Hgb (14.0-18.0) g/dL Hct (42.0-52.0) % MCV (80.0-94.0) fL MCH (27.0-31.0) pg MCHC (32.0-36.0) g/dL RDW (12.0-15.0) % Plt Count (130-450) 10^3/uL MPV (7.4-11.4) fL Neut # (Auto) (1.5-6.6) 10^3/uL Lymph # (Auto) (1.5-3.5) 10^3/uL [place] # (Auto) (0.0-1.0) 10^3/uL Eos # (Auto) (0.0-0.7) 10^3/uL Baso # (Auto) (0.0-0.1) 10^3/uL Absolute Nucleated RBC x10^3/uL Nucleated RBC % /100WBC Sodium 140 (135-145) mmol/L Potassium 3.5 (3.5-4.5) mmol/L Chloride 104 (101-111) mmol/L Carbon Dioxide 27 (21-32) mmol/L Anion Gap 9.0 (6-13) BUN 23 H (6-20) mg/dL Creatinine 1.2 (0.6-1.3) mg/dL Estimated GFR (MDRD) 65 L (>89) Glucose 98 (74-104) mg/dL Estimat Average Glucose 100 (70-100) mg/dL Hemoglobin A1c % 5.1 (4.27-6.07) % Lactic Acid (0.5-2.2) mmol/L Calcium 9.0 (8.5-10.3) mg/dL Magnesium (1.7-2.3) mg/dL Total Bilirubin 0.6 (0.2-1.0) mg/dL AST 20 (10-42) IU/L ALT 18 (10-60) IU/L Alkaline Phosphatase 52 (42-121) IU/L Total Protein 6.7 (6.4-8.9) g/dL Albumin 4.2 (3.2-5.5) g/dL Globulin 2.5 (2.1-4.2) g/dL Albumin/Globulin Ratio 1.7 (1.0-2.2) Triglycerides 149 mg/dL Cholesterol 158 ( - 200) mg/dL LDL Cholesterol, Calc 81 ( - 129) mg/dL VLDL Cholesterol 30 mg/dL HDL Cholesterol 47 L (60 - ) mg/dL LDL/HDL Ratio 1.7 (<3.6) Cholesterol/HDL Ratio 3.4 (<5.0) TSH 1.88 (0.34-5.60) uIU/mL 12/28/23 Range/Units 15:55 WBC 10.1 (4.8-10.8) x10^3/uL RBC 5.57 (4.70-6.10) 10^6/uL Hgb 15.3 (14.0-18.0) g/dL Hct 45.4 (42.0-52.0) % MCV 81.5 (80.0-94.0) fL MCH 27.5 (27.0-31.0) pg MCHC 33.7 (32.0-36.0) g/dL RDW 13.2 (12.0-15.0) % Plt Count 169 (130-450) 10^3/uL MPV 10.6 (7.4-11.4) fL Neut # (Auto) 6.8 H (1.5-6.6) 10^3/uL Lymph # (Auto) 1.9 (1.5-3.5) 10^3/uL [place] # (Auto) 0.9 (0.0-1.0) 10^3/uL Eos # (Auto) 0.4 (0.0-0.7) 10^3/uL Baso # (Auto) 0.1 (0.0-0.1) 10^3/uL Absolute Nucleated RBC 0.00 x10^3/uL Nucleated RBC % 0.0 /100WBC Sodium (135-145) mmol/L Potassium (3.5-4.5) mmol/L Chloride (101-111) mmol/L Carbon Dioxide (21-32) mmol/L Anion Gap (6-13) BUN (6-20) mg/dL Creatinine (0.6-1.3) mg/dL Estimated GFR (MDRD) (>89) Glucose (74-104) mg/dL Estimat Average Glucose (70-100) mg/dL Hemoglobin A1c % (4.27-6.07) % Lactic Acid (0.5-2.2) mmol/L Calcium (8.5-10.3) mg/dL Magnesium (1.7-2.3) mg/dL Total Bilirubin (0.2-1.0) mg/dL AST (10-42) IU/L ALT (10-60) IU/L Alkaline Phosphatase (42-121) IU/L Total Protein (6.4-8.9) g/dL Albumin (3.2-5.5) g/dL Globulin (2.1-4.2) g/dL Albumin/Globulin Ratio (1.0-2.2) Triglycerides mg/dL Cholesterol ( - 200) mg/dL LDL Cholesterol, Calc ( - 129) mg/dL VLDL Cholesterol mg/dL HDL Cholesterol (60 - ) mg/dL LDL/HDL Ratio (<3.6) Cholesterol/HDL Ratio (<5.0) TSH (0.34-5.60) uIU/mL ABX Reporting Has patient been on IV antibiotics over the past 48 hours?: Yes Assessment/Plan - Problem List (1) Cellulitis, neck Impression: Present on admission and resolved. (2) Sialoadenitis of submandibular gland Impression: I have gone over discharge instructions with the patient and with his brother. He wants us to call in prescriptions to [facility]. That was called to [facility] initially. But then [facility] is closed so [facility] so [facility]125 mg of [facility]mentin[facility]clavulanic acid [facility] I am also recommending hot compresses, hydrate appropriately, and take an [id number] probiotic twice daily while he is on the antibiotic. He is to see the surgeon tomorrow. Surgeon is asking him to call the office at 8 AM and find out what time he needs to be worked in.
[2023-12-29 15:09] VITALS: BP 145/94; O2SAT 95
== END 2023-12-29 13:35 | disposition home or self-care (01) ==
LOC: ED 15:13 → MS2 20:16
PROVIDERS: ADMIT Student in an Organized Health Care Education/Training Program; ATTEND Student in an Organized Health Care Education/Training Program
DX: L03.221 Cellulitis of neck (principal); L03.211 Cellulitis of face; K11.20 Sialoadenitis, unspecified; K12.2 Cellulitis and abscess of mouth; I10 Essential (primary) hypertension; R62.50 Unspecified lack of expected normal physiological development in childhood
CPT/HCPCS: 36415; 70491; 80053; 80061; 83036; 83605; 83735; 84443; 85025; 87040; 96365; 96366; 96367; 96375; 96376; 99285; A9270; G0378; J3370; J7120; Q9967; 83721